=== PATIENT | female | born 1955 | race Two or more races ===

== ENCOUNTER → 2017-02-20 | Outpatient (CLI) | payer OTHER | LOC: RAD 08:42 | PROVIDERS: ATTEND Internal Medicine | DX: C54.1 Malignant neoplasm of endometrium (principal) | CPT/HCPCS: 71260; 74177 ==

== ENCOUNTER → 2017-05-13 | Outpatient (CLI) | payer OTHER ==
--- NOTE | 2017-05-14 08:29 | RADIOLOGY REPORT (SQ) ---
EXAM DESCRIPTION: PET CT SKULL/THIGH COMPLETED DATE/TIME: 05/13/2017 6:59 pm REASON FOR STUDY: ENDOMETRIUM CANCER C54.1 MALIGNANT NEOPLASM OF ENDOMETRIUM COMPARISON: CT dated 02/20/2017. RADIONUCLIDE AND DOSE: 12.0 mCi F18 FDG The route of agent administration: Intravenous FASTING BLOOD SUGAR: 88 mg/dl CONTRAST TYPE AND DOSE: No CT contrast given. TECHNIQUE: Blood glucose level was verified. Above dose of FDG was injected intravenously. 2-D seg mented attenuation correction images were obtained from the base of the skull to the midthighs. Nonc ontrast CT images were obtained for attenuation correction and fusion with emission images. CT image s were performed without oral or intravenous contrast and are not sensitive for parenchymal lesions. A series of overlapping emission PET images were obtained. [facility] by the radiologist. Images stored on PACS. LIMITATIONS: None. FINDINGS: HEAD AND NECK: No areas of abnormal metabolic activity in the soft tissues of the head and neck. CHEST: No areas of abnormal metabolic activity in the chest. ABDOMEN AND PELVIS: No areas of abnormal metabolic activity in the abdomen or pelvis. Expected physi ologic activity is present in the genitourinary system and bowel. PROXIMAL LOWER EXTREMITIES: No areas of abnormal metabolic activity in the soft tissues of the lower extremities. BONES: No abnormal metabolic activity in the visualized skeleton. ADDITIONAL CT FINDINGS: Incidental cyst in the liver. Colonic diverticulosis. Stable 1.8 cm hypoden se mass in the tail of the pancreas with no abnormal activity on PET imaging. OTHER: No other significant findings. IMPRESSION: UNREMARKABLE PET SCAN. INCIDENTAL CT FINDINGS ABOVE. MASS IN THE TAIL OF THE PANCRE DOES NOT DEMONSTRATE INCREASED ACTIVITY ON PET IMAGING. CONTINUED SURVEILLANCE CLINICALLY NOAM CATED. TECHNICAL DOCUMENTATION: JOB ID: [id number] [employer]- All Rights Reserved
== END ==
LOC: RAD 16:20
PROVIDERS: ATTEND Internal Medicine
DX: C54.1 Malignant neoplasm of endometrium (principal)
CPT/HCPCS: 78815; A9552

== ENCOUNTER → 2017-07-26 | Outpatient (CLI) | payer OTHER ==
--- NOTE | 2017-07-26 10:57 | WOMENS IMAGING REPORT ---
EXAM DESCRIPTION: BONE DENSITY HIP/SPINE COMPLETED DATE/TIME: 07/26/2017 8:25 am REASON FOR STUDY: SCREENING MAMMO; OSTEOPOROSIS Z12.31 ENCNTR SCREEN MAMMOGRAM FOR MALIGNANT NEOPLA [facility] COMPARISON: None. TECHNIQUE: Dual-Energy X-ray Absorptiometry (DEXA) of the AP Spine and Hip. LIMITATIONS: None. FINDINGS: LUMBAR SPINE: The bone mineral density (BMD) measured from L1-L4 in the AP projection correlates with a T-score of 1.2, which is normal as defined by the World Health Organization. HIP: The bone mineral density (BMD) measured in the left hip correlates with a T-score of -1.2 in the femo ral neck, which is osteopenia as defined by the World Health Organization. IMPRESSION: 1. LUMBAR SPINE: NORMAL. 2. HIP: OSTEOPENIA. COMMENT: The World Health Organization defines low BMD as follows: T-score: Normal: Greater than -1.0 Osteopenia: Between -1.0 and -2.5 Osteoporosis: Less than -2.5 without fractures Established osteoporosis: Less than -2.5 with fractures In general, you may wish to consider: Diagnosis Treatment Follow-up DEXA Normal BMD Prevention 2-3 years Osteopenia Prevention/Therapy 1-2 years Osteoporosis Therapy Yearly TECHNICAL DOCUMENTATION: JOB ID: [id number] [employer]- All Rights Reserved
--- NOTE | 2017-07-31 18:27 | WOMENS IMAGING REPORT ---
EXAM DESCRIPTION: 3D SCREENING MAMMO BILAT COMPLETED DATE/TIME: 07/26/2017 8:25 am REASON FOR STUDY: SCREENING MAMMO; OSTEOPOROSIS Z12.31 ENCNTR SCREEN MAMMOGRAM FOR MALIGNANT NEOPLA [facility] COMPARISON: 2014, 2012, 2009 TECHNIQUE: Standard craniocaudal and mediolateral oblique views of each breast recorded using digita l acquisition and breast tomosynthesis. LIMITATIONS: None. FINDINGS: No masses, calcifications or architectural distortion. No areas of suspicion. Read with the assistance of CAD. .[facility] - R2 Cenova Version 1.3 .[facility] - R2 Cenova Version 1.3 .[facility] - R2 Cenova Version 2.4 .[facility] - R2 Cenova Version 2.4 .[facility] - R2 Cinder Dump Crane Operator Version 9.2 IMPRESSION: NORMAL MAMMOGRAM. BIRADS 1. BREAST DENSITY: b. There are scattered areas of fibroglandular density. BIRAD: 1 NEGATIVE RECOMMENDATION: ROUTINE SCREENING Please continue yearly bilateral screening tomosynthesis in June 2018 COMMENT: The patient has been notified of the results by letter per [place] requirements. Additional no tification policies are in place for contacting patient with suspicious or incomplete findings. Quality ID #225: The [employer] recommends an annual screening mammogram for women aged 40 years or over. This facility utilizes a reminder system to ensure that all patients receive reminder letters, and/or direct phone calls for appointments. This includes reminders for routine scr eening mammograms, diagnostic mammograms, or other Breast Imaging Interventions when appropriate. Th is patient will be placed in the appropriate reminder system. The [employer] (ACR) has developed recommendations for screening MRI of the breast s in certain patient populations, to be used in conjunction with mammography. Breast MRI surveillanc e may be appropriate for women with more than 20% lifetime risk of developing breast cancer as deter mined by genetic testing, significant family history of the disease, or history of mantle radiation f or Hodgkins Disease. ACR Practice Guidelines 2008. DBT Technology DBT is a type of tomographic mammography. With conventional mammography, overlapping breast tissue ma y make lesions difficult to detect, even with good compression. DBT uses an x-ray tube that rotates a round the breast, taking images at different angles. These images are then combined to create thin sl ices of the breast that the radiologist can view as a 3D reconstruction. The [employer] unit can perform full-field digital mammograms (2D imaging); or DBT (3D imaging); or both, in a combination mode that quickly performs both the mammogram and the tomosynthesis scan while the breast is still compressed. PQRS 6045F: Fluoroscopic imaging is not utilized for breast tomosynthesis. TECHNICAL DOCUMENTATION: FINDING NUMBER: (1) ASSESSMENT: (1) JOB ID: [id number] [employer]- All Rights Reserved
== END ==
LOC: WI 07:51
PROVIDERS: ATTEND Internal Medicine
DX: Z12.31 Encounter for screening mammogram for malignant neoplasm of breast (principal)
CPT/HCPCS: 77063; 77080; G0202; 77067

== ENCOUNTER → 2017-07-30 | Outpatient (CLI) | payer OTHER ==
--- NOTE | 2017-07-30 11:08 | RADIOLOGY REPORT (SQ) ---
EXAM DESCRIPTION: CT CHEST WITH; CT ABD/PELVIS WITH IV ORAL COMPLETED DATE/TIME: 07/30/2017 9:53 am; 07/30/2017 9:54 am REASON FOR STUDY: ENDOMETRIUM CA (C54.1) C54.1 MALIGNANT NEOPLASM OF ENDOMETRIUM COMPARISON: PET-CT 05/13/2017 CT chest abdomen pelvis 02/20/2017 CONTRAST TYPE AND DOSE: contrast/concentration: Isovue 370.00 mg/ml; Total Contrast Delivered: 62.0 ml; Total Saline Delivered: 65.0 ml RENAL FUNCTION: Creatinine 0.6 TECHNIQUE: CT scan of the chest performed using helical scanning technique with dynamic intravenous contrast injection. Images reviewed with lung, soft tissue and bone windows. Reconstructed coronal a nd sagittal MPR images reviewed. All images stored on PACS. CT scan of the abdomen and pelvis performed with intravenous and with oral contrastusing helical scan tom technique with dynamic intravenous contrast injection. Images reviewed with lung, soft tissue a nd bone windows. Reconstructed coronal and sagittal MPR images reviewed. Delayed images for evaluat ion of the urinary system also acquired and evaluated. All images stored on PACS. All CT scanners at this facility use dose modulation, iterative reconstruction, and/or weight based d osing when appropriate to reduce radiation dose to as low as reasonably achievable (ALARA). [facility]: Dose Right [facility]: CareDose [facility]: Dose Right [facility]: Teradose 4D [facility]: Smart Technologies RADIATION DOSE: Up-to-date CT equipment and radiation dose reduction techniques were employed. CTDIv ol: 4.4 - 4.9 mGy. DLP: 625 mGy-cm. . LIMITATIONS: None. FINDINGS: CHEST: LUNGS AND PLEURA: No opacities, worrisome nodules, masses. No pneumothorax. No effusions. Stable no ncalcified less than 3 mm granulomas in the right middle lobe. HILAR AND MEDIASTINAL STRUCTURES: No identified masses or abnormal nodes. HEART AND VASCULAR STRUCTURES: No aneurysm or dissection. No central pulmonary emboli. No pericardi al effusion. HARDWARE: None. THYROID AND OTHER SOFT TISSUES: No masses. No adenopathy. BONES: No significant finding. OTHER: No other significant finding. ABDOMEN AND PELVIS: LIVER: Normal size. No masses. No dilated ducts. Stable 2 cm hepatic cyst left lobe liver axial fifi ge 53. SPLEEN: Normal size. No focal lesions. PANCREAS: Along the pancreatic tail, 1.7 cm complex cyst is present on axial image 15 unchanged from prior exams. This was non metabolic on PET-CT 05/05/2015. No significant calcifications. No adjacent inflammation or peripancreatic fluid collections. Pancreatic duct not dilated. GALLBLADDER: Surgically absent ADRENAL GLANDS: No significant masses or asymmetry. RIGHT KIDNEY AND URETER: 7 mm fatty density angiomyolipoma lower pole right kidney unchanged. No sign ificant calcification. No hydronephrosis or hydroureter. LEFT KIDNEY AND URETER: No solid masses. No significant calcification. No hydronephrosis or hydrouret er. AORTA AND VESSELS: No aneurysm. No dissection. Renal arteries, SMA, celiac without stenosis. RETROPERITONEUM: No retroperitoneal adenopathy, hemorrhage or masses. Multiple surgical post retrope ritoneal lymph node dissection BOWEL AND PERITONEAL CAVITY: No masses or inflammatory changes. No free fluid or peritoneal masses. Patient drank oral contrast. No bowel obstruction. APPENDIX: Surgically absent ABDOMINAL WALL: No masses. No hernias. BONES: Advanced degenerative disc changes at L3-4. Pelvis: No other significant finding. No adenopathy. No free fluid. IMPRESSION: No CT evidence of metastatic endometrial cancer to the chest abdomen or pelvis. Stable hepatic cysts, pancreatic complex cyst. TECHNICAL DOCUMENTATION: JOB ID: [id number] Quality ID # 436: Final reports with documentation of one or more dose reduction techniques (e.g., Au tomated exposure control, adjustment of the mA and/or kV according to patient size, use of iterative reconstruction technique) 2010 [employer]- All Rights Reserved
== END ==
LOC: RAD 09:11
PROVIDERS: ATTEND Internal Medicine
DX: C54.1 Malignant neoplasm of endometrium (principal)
CPT/HCPCS: 71260; 74177; 82565

== ENCOUNTER → 2017-11-12 | Outpatient (CLI) | payer OTHER ==
--- NOTE | 2017-11-12 11:58 | RADIOLOGY REPORT (SQ) ---
EXAM DESCRIPTION: CT CHEST WITH; CT ABD/PELVIS WITH IV ONLY COMPLETED DATE/TIME: 11/12/2017 9:49 am REASON FOR STUDY: ENDOMETRIUM CA C54.1 MALIGNANT NEOPLASM OF ENDOMETRIUM COMPARISON: 07/30/2017. PET-CT from last April. CONTRAST TYPE AND DOSE: contrast/concentration: Isovue 370.00 mg/ml; Total Contrast Delivered: 64.0 ml; Total Saline Delivered: 65.0 ml RENAL FUNCTION: Creatinine 0.5 TECHNIQUE: CT scan of the chest performed using helical scanning technique with dynamic intravenous contrast injection. Images reviewed with lung, soft tissue and bone windows. Reconstructed coronal a nd sagittal MPR images reviewed. All images stored on PACS. CT scan of the abdomen and pelvis performed with intravenous and with oral contrastusing helical scan tom technique with dynamic intravenous contrast injection. Images reviewed with lung, soft tissue a nd bone windows. Reconstructed coronal and sagittal MPR images reviewed. Delayed images for evaluat ion of the urinary system also acquired and evaluated. All images stored on PACS. All CT scanners at this facility use dose modulation, iterative reconstruction, and/or weight based d osing when appropriate to reduce radiation dose to as low as reasonably achievable (ALARA). [facility]: Dose Right [facility]: CareDose [facility]: Dose Right [facility]: Teradose 4D [facility]: [employer] RADIATION DOSE: CT Rad equipment meets quality standard of care and radiation dose reduction techniq ues were employed. CTDIvol: 4.4 - 4.9 mGy. DLP: 654 mGy-cm. . LIMITATIONS: None. FINDINGS: CHEST: LUNGS AND PLEURA: Scattered new subcentimeter pulmonary nodules have developed. The largest measures just at 4 mm maximally, left upper lobe. Additional tiny nodules are noted in the right middle lobe and in the lower lobes. Worrisome for metastatic disease. HILAR AND MEDIASTINAL STRUCTURES: No identified masses or abnormal nodes. HEART AND VASCULAR STRUCTURES: No aneurysm or dissection. No central pulmonary emboli. No pericardi al effusion. HARDWARE: None. THYROID AND OTHER SOFT TISSUES: No masses. No adenopathy. BONES: No significant finding. OTHER: No other significant finding. ABDOMEN AND PELVIS: LIVER: Low density lesions are now seen scattered throughout the liver. These are generally new. Th ere is a stable anterior right lobe cyst which is better defined and has not progressed. Crescentic circumscribed low density presumed implant near the zulema and extending along the caudate lobe. This measures up to 5 cm maximal transverse dimension and looks new. SPLEEN: Normal size. No focal lesions. PANCREAS: No developing mass. Slight region of heterogeneity in the pancreatic tail as before. No si gnificant calcifications. No adjacent inflammation or peripancreatic fluid collections. Pancreatic du ct not dilated. GALLBLADDER: Surgically absent. ADRENAL GLANDS: No significant masses or asymmetry. RIGHT KIDNEY AND URETER: No solid masses. No significant calcification. No hydronephrosis or hydroure ter. LEFT KIDNEY AND URETER: No solid masses. No significant calcification. No hydronephrosis or hydrouret er. AORTA AND VESSELS: Atherosclerotic but no evidence of aneurysm. Grossly patent major arterial struct ures. No venous clot appreciated. RETROPERITONEUM: Small developing upper retroperitoneal subcentimeter nodes are suggested. BOWEL AND PERITONEAL CAVITY: No masses or inflammatory changes. No free fluid or peritoneal masses. APPENDIX: Not visualized. ABDOMINAL WALL: Minimal umbilical region hernia. PELVIS: No mass or fluid. Bladder unremarkable. No bulky adenopathy suggested. BONES: No significant or acute findings. OTHER: No other significant finding. IMPRESSION: 1. Numerous tiny pulmonary nodules have developed, suspicious. 2. Numerous liver lesi ons have developed, also suspicious for metastases. Cystic-appearing implant along the liver is also now present, not seen before. TECHNICAL DOCUMENTATION: JOB ID: [id number] Quality ID # 436: Final reports with documentation of one or more dose reduction techniques (e.g., Au tomated exposure control, adjustment of the mA and/or kV according to patient size, use of iterative reconstruction technique) 2010 [employer]- All Rights Reserved
== END ==
LOC: RAD 09:06
PROVIDERS: ATTEND Internal Medicine
DX: C54.1 Malignant neoplasm of endometrium (principal); R91.8 Other nonspecific abnormal finding of lung field; K76.9 Liver disease, unspecified
CPT/HCPCS: 71260; 74177; 82565

== ENCOUNTER → 2017-11-18 | Outpatient (CLI) | payer OTHER ==
--- NOTE | 2017-11-19 10:35 | RADIOLOGY REPORT (SQ) ---
EXAM DESCRIPTION: PET CT SKULL/THIGH COMPLETED DATE/TIME: 11/18/2017 8:25 pm REASON FOR STUDY: ENDOMETRIUM C54.1 MALIGNANT NEOPLASM OF ENDOMETRIUM COMPARISON: 05/13/2017 RADIONUCLIDE AND DOSE: 10.2 mCi F18 FDG The route of agent administration: Intravenous FASTING BLOOD SUGAR: 97 mg/dl CONTRAST TYPE AND DOSE: No CT contrast given. TECHNIQUE: Blood glucose level was verified. Above dose of FDG was injected intravenously. 2-D seg mented attenuation correction images were obtained from the base of the skull to the midthighs. Nonc ontrast CT images were obtained for attenuation correction and fusion with emission images. CT image s were performed without oral or intravenous contrast and are not sensitive for parenchymal lesions. A series of overlapping emission PET images were obtained. Images [facility] by the radiologist. Images stored on PACS. LIMITATIONS: None. FINDINGS: HEAD AND NECK: Less than 1 cm left supraclavicular node measuring about 3.2 mean SUV. CHEST: No areas of abnormal metabolic activity in the chest. ABDOMEN AND PELVIS: Several hepatic lesions recently described on CT 11/12/2017 are hypermetabolic. T he most hypermetabolic is a segment 6 lesion measuring 5.7 SUV. PROXIMAL LOWER EXTREMITIES: No areas of abnormal metabolic activity in the soft tissues of the lower extremities. BONES: No abnormal metabolic activity in the visualized skeleton. ADDITIONAL CT FINDINGS: See recent CT chest abdomen pelvis. OTHER: No other significant findings. IMPRESSION: 1. Hypermetabolic liver lesions suspicious for metastatic disease. 2. Small hypermetabolic left supraclavicular node. TECHNICAL DOCUMENTATION: JOB ID: [id number] [id number]- All Rights Reserved
== END ==
LOC: RAD 17:36
PROVIDERS: ATTEND Internal Medicine
DX: C54.1 Malignant neoplasm of endometrium (principal)
CPT/HCPCS: 78815; A9552

== ENCOUNTER → 2017-12-06 | Outpatient (CLI) | payer OTHER ==
--- NOTE | 2017-12-06 13:51 | RADIOLOGY REPORT (SQ) ---
EXAM DESCRIPTION: NM MUGA REST COMPLETED DATE/TIME: 12/06/2017 1:05 pm REASON FOR STUDY: ENCTR FOR F/U EXAM AFTER CHEMO (Z08) Z08 ENCNTR FOR FOLLOW-UP EXAM AFTER TRTMT FO R MALIGNANT NEOP COMPARISON: None. RADIONUCLIDE AND DOSE: 25.2 mCi technetium 9 9 tagged red cells. The route of agent administration: Intravenous TECHNIQUE: Following administration of the radionuclide, gated images of the heart are obtained in t hree projections. Left ventricular functional analysis performed. LIMITATIONS: None. FINDINGS: LEFT VENTRICULAR FUNCTION: EJECTION FRACTION: 65%. END-DIASTOLIC VOLUME: 70 mL. END-SYSTOLIC VOLUME: 27 mL. WALL MOTION: No focal wall motion abnormalities. OTHER: No other significant finding. IMPRESSION: NORMAL CARDIAC MUGA STUDY. NORMAL LEFT VENTRICULAR FUNCTION WITH VALUES ABOVE. TECHNICAL DOCUMENTATION: JOB ID: [id number] [employer]- All Rights Reserved
== END ==
LOC: RAD 10:35
PROVIDERS: ATTEND Internal Medicine
DX: Z08 Encounter for follow-up examination after completed treatment for malignant neoplasm (principal)
CPT/HCPCS: 78472; A9560; Q9969

== ENCOUNTER → 2018-03-04 | Outpatient (CLI) | payer OTHER ==
--- NOTE | 2018-03-04 09:45 | RADIOLOGY REPORT (SQ) ---
EXAM DESCRIPTION: CT CHEST WITH COMPLETED DATE/TIME: 03/04/2018 9:07 am REASON FOR STUDY: MAL BRE OF ENDOMETRIUM C54.1 MALIGNANT NEOPLASM OF ENDOMETRIUM COMPARISON: 11/12/2017 TECHNIQUE: CT scan of the chest performed using helical scanning technique with dynamic intravenous contrast injection. Images reviewed with lung, soft tissue and bone windows. Reconstructed coronal and sagittal MPR images reviewed. All images stored on PACS. All CT scanners at this facility use dose modulation, iterative reconstruction, and/or weight based d osing when appropriate to reduce radiation dose to as low as reasonably achievable (ALARA). [facility]: Dose Right [facility]: CareDose [facility]: Dose Right [facility]: Teradose 4D [facility]: [employer] CONTRAST TYPE AND DOSE: 62 cc Isovue 370 RENAL FUNCTION: Creatinine-0.5 BUN= 15 RADIATION DOSE: Total exam DLP: 620.05. LIMITATIONS: None. FINDINGS: LUNGS AND PLEURA: Since the prior examination dated 11/12/2017, interval increase in size and number of the bilateral pulmonary nodules. Some of the largest nodules on the prior examination measured 4 mm maximally in the upper lobe, compared to 9-10 mm on the current examination. Considera tions for these findings include metastatic disease. Interval development of mildly prominent interstitial markings in the lungs, more so in the left lung , may be on the basis of lymphangitic carcinomatosis, edema or infiltrate. No pleural effusion or pn eumothorax. The central airways are clear. HILAR AND MEDIASTINAL STRUCTURES: No significant interval changes. HEART AND VASCULAR STRUCTURES: No aneurysm or dissection. No central pulmonary emboli. No pericardi al effusion. HARDWARE: Left Oophoc-Y-Oxkb catheter. UPPER ABDOMEN: Please see CT abdomen report. THYROID AND OTHER SOFT TISSUES: No masses. No adenopathy. BONES: The osseous structures are stable in appearance. OTHER: No other significant finding. IMPRESSION: 1 Since the prior examination dated 11/12/2017, interval increase in size and number of t he bilateral pulmonary nodules. Considerations for this finding includes metastatic disease. 2 Interval development of mildly prominent interstitial markings in the lungs, more so on the left, m ay be on the basis of lymphangitis carcinomatosis, edema or infiltrate. TECHNICAL DOCUMENTATION: JOB ID: [id number] Quality ID # [id number]: Final reports with documentation of one or more dose reduction techniques (e.g., Au tomated exposure control, adjustment of the mA and/or kV according to patient size, use of iterative reconstruction technique) 2010 [employer]- All Rights Reserved Reading location - IP/workstation name: [email or web address]
--- NOTE | 2018-03-04 09:59 | RADIOLOGY REPORT (SQ) ---
EXAM DESCRIPTION: CT ABD/PELVIS WITH IV ONLY COMPLETED DATE/TIME: 03/04/2018 9:07 am REASON FOR STUDY: MAL BRE OF ENDOMETRIUM C54.1 MALIGNANT NEOPLASM OF ENDOMETRIUM COMPARISON: 11/12/2017 TECHNIQUE: CT scan of the abdomen and pelvis performed using helical scanning technique with dynamic intravenous contrast injection. No oral contrast. Images reviewed with lung, soft tissue, and bone windows. Reconstructed coronal and sagittal MPR images reviewed. Delayed images for evaluation of the urinary system also acquired. All images stored on PACS. All CT scanners at this facility use dose modulation, iterative reconstruction, and/or weight based d osing when appropriate to reduce radiation dose to as low as reasonably achievable (ALARA). [facility]: Dose Right [facility]: CareDose [facility]: Dose Right [facility]: Teradose 4D [facility]: [employer] CONTRAST TYPE AND DOSE: 62.2 cc Isovue 370 RENAL FUNCTION: Creatinine - 0.5 BUN=15 RADIATION DOSE: Total exam DLP: 620.05 LIMITATIONS: None. FINDINGS: LOWER CHEST: Please see CT chest report. Very small left pleural effusion. LIVER: Interval development of multiple, innumerable slightly enhancing hypoattenuated lesions throu ghout the liver since the previous examination. Some of the largest measure approximately 2.3 cm and AP diameter. Considerations for these findings include metastatic disease. No dilated ducts. The hepatic and portal veins are patent. SPLEEN: Normal size. No focal lesions. PANCREAS: Stable slight heterogeneity in the pancreatic tail. No developing masses. No significant calcifications. No adjacent inflammation or peripancreatic fluid collections. Pancreatic duct not dil ated. GALLBLADDER: Prior cholecystectomy. ADRENAL GLANDS: No significant masses or asymmetry. RIGHT KIDNEY AND URETER: No solid masses. No significant calcifications. No hydronephrosis or hyd roureter. LEFT KIDNEY AND URETER: No solid masses. No significant calcifications. No hydronephrosis or hydr oureter. AORTA AND VESSELS: Atherosclerotic changes involving the abdominal aorta. No aneurysm. No dissectio n. Renal arteries, SMA, celiac without stenosis. RETROPERITONEUM: No retroperitoneal adenopathy, hemorrhage or masses. BOWEL AND PERITONEAL CAVITY: Constipation. No masses or inflammatory changes. No free fluid or zuleika toneal masses. APPENDIX: Normal. PELVIS: Stable appearing nonenlarged inguinal lymph nodes. Prior hysterectomy. Vaginal cuff is unr emarkable in appearance. No free fluid. Normal bladder. ABDOMINAL WALL: No masses. No hernias. BONES: The osseous structures are stable in appearance. OTHER: No other significant finding. IMPRESSION: 1 Since the prior examination dated 11/12/2017, interval worsening in the appearance of t he liver. Multiple, innumerable slightly enhancing lesions are noted on the current examination whic h have increased in size and number. Considerations for these findings include metastatic disease. 2. Very small left pleural effusion. TECHNICAL DOCUMENTATION: JOB ID: [id number] Quality ID # 436: Final reports with documentation of one or more dose reduction techniques (e.g., Au tomated exposure control, adjustment of the mA and/or kV according to patient size, use of iterative reconstruction technique) 2010 [employer]- All Rights Reserved Reading location - IP/workstation name: [email or web address]
== END ==
LOC: RAD 08:26
PROVIDERS: ATTEND Physician Assistant Medical
DX: C54.1 Malignant neoplasm of endometrium (principal)
CPT/HCPCS: 71260; 74177

== ENCOUNTER → 2018-05-03 | Outpatient (CLI) | payer OTHER ==
--- NOTE | 2018-05-03 09:47 | RADIOLOGY REPORT (SQ) ---
EXAM DESCRIPTION: CT CHEST WITH; CT ABD/PELVIS WITH IV ONLY COMPLETED DATE/TIME: 05/03/2018 9:23 am REASON FOR STUDY: ENDOMETRIAL CA (C54.1) C54.1 MALIGNANT NEOPLASM OF ENDOMETRIUM COMPARISON: CT CHEST ABDOMEN PELVIS 11/12/2017, 03/04/2018 PET-CT 11/18/2017 CONTRAST TYPE AND DOSE: contrast/concentration: Isovue 370.00 mg/ml; Total Contrast Delivered: 58.0 ml; Total Saline Delivered: 65.0 ml RENAL FUNCTION: Creatinine 0.6 TECHNIQUE: CT scan of the chest performed using helical scanning technique with dynamic intravenous contrast injection. Images reviewed with lung, soft tissue and bone windows. Reconstructed coronal a nd sagittal MPR images reviewed. All images stored on PACS. CT scan of the abdomen and pelvis performed with intravenous and without oral contrastusing helical [place] technique with dynamic intravenous contrast injection. Images reviewed with lung, soft tissu e and bone windows. Reconstructed coronal and sagittal MPR images reviewed. Delayed images for eval uation of the urinary system also acquired and evaluated. All images stored on PACS. All CT scanners at this facility use dose modulation, iterative reconstruction, and/or weight based d osing when appropriate to reduce radiation dose to as low as reasonably achievable (ALARA). [facility]: Dose Right [facility]: CareDose [facility]: Dose Right [facility]: Teradose 4D [facility]: Smart Technologies RADIATION DOSE: CT Rad equipment meets quality standard of care and radiation dose reduction techniq ues were employed. CTDIvol: 4.4 - 4.5 mGy. DLP: 589 mGy-cm. . LIMITATIONS: None. FINDINGS: CHEST: LUNGS AND PLEURA: Increase in thickening of the interlobular septa compared to 03/04/2018 worrisome fo r worsening lymphangitic tumor. Stable multiple subcentimeter pulmonary nodules bilaterally. No pleural effusions. No pneumothorax. HILAR AND MEDIASTINAL STRUCTURES: No identified masses or abnormal nodes. HEART AND VASCULAR STRUCTURES: No aneurysm or dissection. No central pulmonary emboli. No pericardi al effusion. HARDWARE: None. THYROID AND OTHER SOFT TISSUES: No masses. No adenopathy. BONES: No significant finding. OTHER: No other significant finding. ABDOMEN AND PELVIS: LIVER: Increase in size of multiple liver lesions compared to 03/04/2018, index lesions are as follows : Periphery right lobe liver 4.4 x 2.4 cm (was 3 x 2 cm on 03/04/2018). Left lobe liver near the falciform ligament 3.1 x 2.5 cm (was 2 x 2 cm on 03/04/2018). SPLEEN: Normal size. No focal lesions. PANCREAS: No masses. No significant calcifications. No adjacent inflammation or peripancreatic fluid collections. Pancreatic duct not dilated. GALLBLADDER: Surgically absent ADRENAL GLANDS: No significant masses or asymmetry. RIGHT KIDNEY AND URETER: No solid masses. No significant calcification. No hydronephrosis or hydroure ter. LEFT KIDNEY AND URETER: No solid masses. No significant calcification. No hydronephrosis or hydrouret er. AORTA AND VESSELS: No abdominal aortic aneurysm or dissection. RETROPERITONEUM: No retroperitoneal adenopathy, hemorrhage or masses. BOWEL AND PERITONEAL CAVITY: There is trace ascites between the lesser curvature of stomach and left lobe liver. No free intraperitoneal air. No CT evidence of bowel obstruction. Colonic diverticuli without CT signs of acute diverticulitis. APPENDIX: Normal. ABDOMINAL WALL: No masses. No hernias. PELVIS: No mass or free fluid. Normal bladder. Post hysterectomy. BONES: No significant or acute findings. OTHER: No other significant finding. IMPRESSION: Increased interstitial markings in both lungs worrisome for worsening lymphangitic sprea d of tumor. Increase in size of multiple liver lesions TECHNICAL DOCUMENTATION: JOB ID: [id number] Quality ID # [id number]: Final reports with documentation of one or more dose reduction techniques (e.g., Au tomated exposure control, adjustment of the mA and/or kV according to patient size, use of iterative reconstruction technique) 2010 [employer]- All Rights Reserved Reading location - IP/workstation name: [email or web address]
== END ==
LOC: RAD 08:43
PROVIDERS: ATTEND Internal Medicine
DX: C54.1 Malignant neoplasm of endometrium (principal); K76.9 Liver disease, unspecified; K57.30 Diverticulosis of large intestine without perforation or abscess without bleeding
CPT/HCPCS: 71260; 74177

== ENCOUNTER 2018-06-07 17:03 | Inpatient (IN) | payer OTHER ==
[2018-06-07] MEDS ORDERED: NORMAL SALINE 1000 ML 500 ML IV PRN (17:38)
[2018-06-07] MEDS ORDERED: NORMAL SALINE 1000 ML 500 ML IV ONE (17:38)
--- NOTE | 2018-06-07 17:40 | ER Document Report ---
ED Medical Screen (RME) - General Chief Complaint: Syncope Stated Complaint: DIZZY Time Seen by Provider: 06/07/18 17:37 Notes: 62 years old female with a history of metastatic uterine cancer, chemotherapy was given 3 weeks ago. She was seen at the [facility] last Sunday and was given Lasix to be taken daily. Now she is feeling dizzy lightheaded, and falling. Therefore brought to the ED. Been dehydrated. Nauseous and vomited a few times. TRAVEL OUTSIDE OF THE [place] IN LAST 30 DAYS: No - Related Data Allergies/Adverse Reactions: No Known Allergies Allergy (Unverified 06/07/18 17:05) Physical Exam - Vital signs Vitals: Pulse Resp BP Pulse Ox 89 16 84/51 L 93 06/07/18 17:10 06/07/18 17:10 06/07/18 17:10 06/07/18 17:10 Course - Vital Signs Vital signs: Temp Pulse Resp BP Pulse Ox 89 16 84/51 L 93 06/07/18 17:10 06/07/18 17:10 06/07/18 17:10 06/07/18 17:10 Doctor's Discharge - Discharge Referrals: SHAILESH SUTHERLAND MD [Primary Care Provider] - Follow up as needed
--- NOTE | 2018-06-07 18:02 | RADIOLOGY REPORT (SQ) ---
EXAM DESCRIPTION: CHEST 2 VIEWS COMPLETED DATE/TIME: 06/07/2018 5:52 pm REASON FOR STUDY: Shortness of breath/metastatic tumor COMPARISON: 05/03/2018 EXAM PARAMETERS: NUMBER OF VIEWS: two views TECHNIQUE: Digital Frontal and Lateral radiographic views of the chest acquired. RADIATION DOSE: NA LIMITATIONS: none FINDINGS: LUNGS AND PLEURA: Extensive lymphangitic changes with Jamshid B-lines. Left pleural effusi on. Small pulmonary nodules. MEDIASTINUM AND HILAR STRUCTURES: No masses or contour abnormalities. HEART AND VASCULAR STRUCTURES: Heart normal size. No evidence for failure. BONES: No acute findings. HARDWARE: None in the chest. OTHER: No other significant finding. IMPRESSION: Diffuse metastatic disease predominantly new lymphatic. Left pleural effusions slightly larger than the recent CT. TECHNICAL DOCUMENTATION: JOB ID: [id number] [employer]- All Rights Reserved Reading location - IP/workstation name: [email or web address]
--- NOTE | 2018-06-07 18:15 | ER Document Report ---
ED Dizziness/Weakness - General Information source: Patient TRAVEL OUTSIDE OF THE U.[place] IN LAST 30 DAYS: No <TAMIKO BRADY - Last Filed: 06/07/18 18:38> <MAKENZIE RUIZ - Last Filed: 06/07/18 20:39> - General Chief Complaint: Syncope Stated Complaint: DIZZY Time Seen by Provider: 06/07/18 17:37 Notes: Mrs. 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 She reports that she was seen at [facility] and prescribed Lasix 20mg daily for bilateral lower extremity edema and fluid to her lungs. She reports that she took a dose on Sunday and , 06/05 and 06/06, but did not take the Lasix today. Pt reports that she has been dizzy and lightheaded with standing since starting the Lasix and had a near syncopal episode after coming home from [facility]. Pt's BP is very low today, 84/51 while sitting in triage. She reports that her BP usually runs 121/78. Pt denies much shortness of breath before ever starting the Lasix and denies any relief to her breathing since starting the Lasix. Pt's Oncologist is Dr. Pastor. Pt's last chemo treatment was 4 weeks ago. Pt takes pain medication and a medication for her HLD. She denies having her dose of pain medication this evening and reports some discomfort to her RUQ, under her ribs. Pt is also taking Carvedilol for an episode of heart arrhythmia back in 2008. (TAMIKO BRADY) History from the spouse is: The patient was at [facility] on Sunday, Sunday, being seen as an outpatient. She was diagnosed with urinary tract infection and started on Macrodantin on . She was given a prescription for low-dose prednisone 5 mg a day because her energy levels were low. She was given a prescription for Lasix 20 mg a day for 3 days starting on Sunday due to peripheral edema, and fluid in the lungs. The patient has not urinated very much in the past 2 days despite the 2 doses of Lasix that she has taken. The nurse put compression stockings on the patient sometime before I went in to see her. The edema to the right lower extremity is slightly worse than the left. (MAKENZIE RUIZ) - Related Data Allergies/Adverse Reactions: No Known Allergies Allergy (Unverified 06/07/18 17:05) Past Medical History - General Information source: Patient - Social History Smoking Status: Never Smoker Family History: Reviewed & Not Pertinent Patient has suicidal ideation: No Patient has homicidal ideation: No - Past Medical History Cardiac Medical History: Reports: Hx Hypercholesterolemia Renal/ Medical History: Denies: Hx Peritoneal Dialysis Malignancy Medical History: Reports: Other - stage 4 endometrial cancer with metastases to liver and lung involvement Past Surgical History: Reports: Hx Cholecystectomy, Hx Hysterectomy, Hx Orthopedic Surgery - RT knee surgery after petallar fracture <TAMIKO BRADY - Last Filed: 06/07/18 18:38> Review of Systems - Review of Systems Constitutional: No symptoms reported EENT: No symptoms reported Cardiovascular: See HPI, Dizziness, Lightheaded, Other - low BP Respiratory: See HPI. denies: Short of breath Gastrointestinal: No symptoms reported Genitourinary: No symptoms reported Female Genitourinary: No symptoms reported Musculoskeletal: No symptoms reported Skin: No symptoms reported Hematologic/Lymphatic: No symptoms reported Neurological/Psychological: No symptoms reported -: Yes All other systems reviewed and negative <TAMIKO BRADY - Last Filed: 06/07/18 18:38> Physical Exam <TAMIKO BRADY - Last Filed: 06/07/18 18:38> <MAKENZIE RUIZ - Last Filed: 06/07/18 20:39> - Vital signs Vitals: Pulse Resp BP Pulse Ox 89 16 84/51 L 93 06/07/18 17:10 06/07/18 17:10 06/07/18 17:10 06/07/18 17:10 - Notes Notes: Physical Exam: General: Alert, appears well. HEENT: Normocephalic. Atraumatic. PERRL. Extraocular movements intact. Oropharynx clear. Neck: Supple. Non-tender. No bulging to veins. Respiratory: No respiratory distress. Clear and equal breath sounds bilaterally. Cardiovascular: Regular rate and rhythm. Abdominal: Some RUQ tenderness to palpation. No distension. Normal Bowel Sounds. Back: Non-tender. No deformity or step off. Extremities: Moves all four extremities. Upper extremities: Normal inspection. Normal ROM. Lower extremities: Normal inspection. 1+ edema to bilateral lower extremities, pt is wearing compression stockings. Normal ROM. Neurological: Normal cognition. AAOx3. Normal speech. Psychological: Normal affect. Normal Mood. Skin: Warm. Dry. Normal color. (JOSE ANTONIO,TAMIKO) Course - Laboratory Result Diagrams: 06/07/18 18:22 06/07/18 18:22 - Diagnostic Test Radiology reviewed: Image reviewed, Reports reviewed - Extensive lymphangitic changes with curly B-lines, and left pleural effusion slightly larger than CT scan done 1 month ago.. - EKG Interpretation by Me EKG shows normal: Sinus rhythm, [place], Intervals, QRS Complexes, ST-T Waves Rate: Normal - 82 Rhythm: NSR When compared to previous EKG there are: Previous EKG unavailable - Consults Dr. Paulson Time consulted: 20:20 Consulted provider: will come to ER <MAKENZIE RUIZ - Last Filed: 06/07/18 20:39> - Vital Signs Vital signs: Temp Pulse Resp BP Pulse Ox 89 26 H 96/57 L 97 06/07/18 17:10 06/07/18 19:54 06/07/18 19:54 06/07/18 19:54 - Laboratory Laboratory results interpreted by me: 06/07/18 06/07/18 06/07/18 18:22 18:22 18:22 WBC 26.9 H RBC 2.83 L Hgb 8.9 L Hct 27.8 L MCV 98 H RDW 21.1 H Plt Count 70 L Seg Neuts % (Manual) 94 H Band Neutrophils % 2 L Lymphocytes % (Manual) 0 L Metamyelocytes % 1 H Abs Neuts (Manual) 26.1 H Abs Lymphs (Manual) 0.0 L Sodium 131.3 L Potassium 6.0 H* Chloride 94 L BUN 60 H Creatinine 1.54 H Est GFR ( Amer) 41 L Est GFR (Non-Af Amer) 34 L Glucose 139 H Direct Bilirubin 0.6 H AST 180 H ALT 75 H Alkaline Phosphatase 1133 H NT-Pro-B Natriuret Pep 1320 H Total Protein 5.6 L Albumin 2.6 L Urine Protein Urine Ketones Urine Blood Urine Urobilinogen Ur Leukocyte Esterase 06/07/18 19:34 WBC RBC Hgb Hct MCV RDW Plt Count Seg Neuts % (Manual) Band Neutrophils % Lymphocytes % (Manual) Metamyelocytes % Abs Neuts (Manual) Abs Lymphs (Manual) Sodium Potassium Chloride BUN Creatinine Est GFR ( Amer) Est GFR (Non-Af Amer) Glucose Direct Bilirubin AST ALT Alkaline Phosphatase NT-Pro-B Natriuret Pep Total Protein Albumin Urine Protein 100 H Urine Ketones TRACE H Urine Blood MODERATE H Urine Urobilinogen 4.0 H Ur Leukocyte Esterase LARGE H Critical Care Note - Critical Care Note Total time excluding time spent on procedures (mins): 40 <MAKENZIE RUIZ - Last Filed: 06/07/18 20:39> Discharge <TAMIKO BRADY - Last Filed: 06/07/18 18:38> - Discharge Admitting Provider: Hospitalist Unit Admitted: IMCU <MAKENZIE RUIZ - Last Filed: 06/07/18 20:39> - Discharge Clinical Impression: Dehydration, Stage IV adenocarcinoma of endometrium Hypotension Qualifiers: Hypotension type: hypotension due to hypovolemia Qualified Code(s): I95.89 - Other hypotension Urinary tract infection Qualifiers: Urinary tract infection type: site unspecified Hematuria presence: with hematuria Qualified Code(s): N39.0 - Urinary tract infection, site not specified Condition: Good Disposition: ADMITTED INPATIENT Scribe Attestation: 06/07/18 19:00 I personally performed the services described in the documentation, reviewed and edited the documentation which was dictated to the scribe in my presence, and it accurately records my words and actions. (MAKENZIE RUIZ) Scribe Documentation - Scribe Written by Valencia:: Valencia Bear 06/07/18 500 acting as scribe for :: Perico <TAMIKO BRADY - Last Filed: 06/07/18 18:38>
[2018-06-07] MEDS ORDERED: TRAMADOL HCL 50 MG TABLET PO ONE (18:23)
[2018-06-07 18:52] LABS: HEMATOCRIT 27.8 % (36.0-47.0); HEMOGLOBIN 8.9 g/dL (12.0-15.5); MEAN CORPUSCULAR HEMOGLOBIN 31.4 pg (27.0-33.4); MEAN CORPUSCULAR VOLUME 98 fl (80-97); RED BLOOD COUNT 2.83 10^6/uL (3.72-5.28); RED CELL DISTRIBUTION WIDTH 21.1 % (11.5-14.0); WHITE BLOOD COUNT 26.9 10^3/uL (4.0-10.5)
[2018-06-07 18:54] LABS: PLATELET COUNT 70 10^3/uL (150-450)
[2018-06-07 19:01] LABS: ALANINE AMINOTRANSFERASE 75 U/L (9-52); ALBUMIN 2.6 g/dL (3.5-5.0); ALKALINE PHOSPHATASE 1133 U/L (38-126); ANION GAP 14 (5-19); ASPARTATE AMINO TRANSFERASE 180 U/L (14-36); BILIRUBIN,DIRECT 0.6 mg/dL (0.0-0.4); BILIRUBIN,TOTAL 0.8 mg/dL (0.2-1.3); BLOOD UREA NITROGEN 60 mg/dL (7-20); CALCIUM 8.7 mg/dL (8.4-10.2); CARBON DIOXIDE 23 mmol/L (22-30); CHLORIDE 94 mmol/L (98-107); GLUCOSE 139 mg/dL (75-110); SODIUM 131.3 mmol/L (137-145); TOTAL PROTEIN 5.6 g/dL (6.3-8.2)
[2018-06-07 19:12] LABS: ABSOLUTE MONOCYTES # (MANUAL) 0.8 10^3/uL (0.1-1.4); ABSOLUTE NEUTROPHILS# (MANUAL) 26.1 10^3/uL (1.7-8.2); BAND NEUTROPHILS % (MANUAL) 2 % (3-5); BASOPHILS % (MANUAL) 0 % (0-2); EOSINOPHILS % (MANUAL) 0 % (0-6); LYMPHOCYTES % (MANUAL) 0 % (13-45); METAMYELOCYTES % (MANUAL) 1 % (0); MONOCYTES % (MANUAL) 3 % (3-13); NUCLEATED RED BLOOD CELLS 1 /100 WBC (0); SEGMENTED NEUTROPHILS % (MAN) 94 % (42-78); TOTAL CELLS COUNTED 100
[2018-06-07 19:27] LABS: ANISOCYTOSIS 3+; HYPOCHROMASIA SLIGHT; POIKILOCYTOSIS SLIGHT; POLYCHROMASIA SLIGHT; TEAR DROP CELLS SLIGHT; TOXIC GRANULATION SLIGHT
[2018-06-07 19:28] LABS: PLATELET COMMENT DECREASED
[2018-06-07 19:44] LABS: LIPASE 197.7 U/L (23-300)
[2018-06-07 20:00] LABS: APPEARANCE,URINE CLOUDY; BILIRUBIN,URINE NEGATIVE (NEGATIVE); GLUCOSE, URINE NEGATIVE (NEGATIVE); KETONES,URINE TRACE mg/dL (NEGATIVE); LEUKOCYTE ESTERASE,URINE LARGE (NEGATIVE); NITRITE,URINE NEGATIVE (NEGATIVE); PROTEIN,URINE 100 mg/dL (NEGATIVE); URINE SPECIFIC GRAVITY 1.039
[2018-06-07 20:02] LABS: COLOR,URINE YELLOW
[2018-06-07] MEDS ORDERED: CEFTRIAXONE 1 GM/D5W RTU 50 ML IV ONE (20:06)
[2018-06-07] MEDS ORDERED: IPRATROPIUM/ALBUTEROL 0.5-2.5 MG/3 ML AMPUL NEB PRN (20:21)
[2018-06-07] MEDS ORDERED: MAG HYDROX/AL HYDROX/SIMETH SUSP 30 ML UDCUP PO PRN (20:21)
[2018-06-07] MEDS ORDERED: MAGNESIUM HYDROXIDE SUSP 30 ML UDCUP PO PRN (20:21)
[2018-06-07] MEDS ORDERED: LACTULOSE SYRUP 20 GM/30 ML UDCUP PO ONE (20:21)
[2018-06-07] MEDS ORDERED: NORMAL SALINE 1000 ML 1,000 ML IV SCH (20:30)
[2018-06-07] MEDS: CEFTRIAXONE SODIUM 1,000 MG in NORMAL SALINE 50 ML IV SCH (20:49)
[2018-06-07] MEDS: NORMAL SALINE 1000 ML 1,000 ML IV PRN (21:16)
[2018-06-07] MEDS: HEPARIN SOD (PORCINE) 5,000 UNIT/ML 1 ML SYRINGE SUBCUT SCH (23:16)
[2018-06-08] MEDS: ACETAMINOPHEN 325 MG TABLET PO PRN (00:39)
[2018-06-08] MEDS ORDERED: ONDANSETRON HCL INJ/PF 4 MG/2 ML SDV IV ONE (02:15)
[2018-06-08] MEDS: NORMAL SALINE 1000 ML 1,000 ML IV PRN ×3 (02:58→17:27)
[2018-06-08] MEDS: HEPARIN SOD (PORCINE) 5,000 UNIT/ML 1 ML SYRINGE SUBCUT SCH (05:57)
[2018-06-08 06:55] LABS: HEMATOCRIT 24.5 % (36.0-47.0); MEAN CORPUSCULAR HEMOGLOBIN 31.9 pg (27.0-33.4); MEAN CORPUSCULAR HGB CONC 32.6 g/dL (32.0-36.0); MEAN CORPUSCULAR VOLUME 98 fl (80-97); RED BLOOD COUNT 2.51 10^6/uL (3.72-5.28); RED CELL DISTRIBUTION WIDTH 21.5 % (11.5-14.0); WHITE BLOOD COUNT 24.7 10^3/uL (4.0-10.5)
--- NOTE | 2018-06-08 07:12 | EKG REPORT ---
SEVERITY:- NORMAL ECG - SINUS RHYTHM : Confirmed by: Jose Hearn MD 08-Jun-2018 07:11:25
[2018-06-08 07:21] LABS: ANION GAP 16 (5-19); BLOOD UREA NITROGEN 58 mg/dL (7-20); CALCIUM 7.9 mg/dL (8.4-10.2); CARBON DIOXIDE 18 mmol/L (22-30); CHLORIDE 100 mmol/L (98-107); GLUCOSE 112 mg/dL (75-110); POTASSIUM 5.1 mmol/L (3.6-5.0); SODIUM 133.9 mmol/L (137-145)
[2018-06-08 07:50] LABS: PLATELET COUNT 51 10^3/uL (150-450)
[2018-06-08 07:52] LABS: ABSOLUTE LYMPHOCYTES# (MANUAL) 0.5 10^3/uL (0.5-4.7); ABSOLUTE MONOCYTES # (MANUAL) 0.2 10^3/uL (0.1-1.4); BAND NEUTROPHILS % (MANUAL) 1 % (3-5); BASOPHILS % (MANUAL) 0 % (0-2); EOSINOPHILS % (MANUAL) 0 % (0-6); LYMPHOCYTES % (MANUAL) 2 % (13-45); MONOCYTES % (MANUAL) 1 % (3-13); SEGMENTED NEUTROPHILS % (MAN) 96 % (42-78); TOTAL CELLS COUNTED 100
[2018-06-08 07:56] LABS: ANISOCYTOSIS 3+; POLYCHROMASIA SLIGHT
[2018-06-08 07:57] LABS: OVALOCYTES 1+; PLATELET COMMENT DECREASED; POIKILOCYTOSIS 1+
[2018-06-08] MEDS: DOCUSATE SODIUM 100 MG CAPSULE PO SCH ×2 (09:10→17:17)
[2018-06-08] MEDS ORDERED: LORAZEPAM INJ 2 MG/1 ML VIAL IV PRN (09:21)
[2018-06-08] MEDS ORDERED: ONDANSETRON HCL INJ/PF 4 MG/2 ML SDV IV PRN (09:22)
--- NOTE | 2018-06-08 09:55 | PDOC CONSULTATION ---
Consultation Consult Date: 06/08/18 Attending physician:: MATEO HARDING Consult reason:: Known history of stage IV endometrial cancer here with weakness , dehydration, renal failure History of Present Illness Admission Date/PCP: 06/07/18 20:30 SHAILESH SUTHERLAND MD Patient complains of: Weakness, dehydration, poor p.o. intake History of Present Illness: TRISHA THRASHER is a 62 year old female with known history of stage IV endometrial cancer, was started about 8 months ago with systemic chemotherapy because of recurrence. She has been to through 2 lines of chemotherapy and we are planning on referral to [facility]. She was seen at [facility], and was being considered for clinical trial but unfortunately she progressed and her liver metastasis caused transaminase level elevation as well as thrombocytopenia that excluded her from clinical trial. I was called last week by them and she was starting to look more and more dehydrated. Ultimately, was called by her yesterday, she could not get out of bed, and was very weak and nauseous. Upon admission she was hypotensive, tachycardic, transaminases were 5 -6 times normal, creatinine was elevated and she was admitted for dehydration as well as consideration of sepsis, she did have UA concerning for UTI. She is on Rocephin now. Past Medical History Cardiac Medical History: Reports: Hyperlipidema Malignancy Medical History: Reports: Other - stage 4 endometrial cancer with metastases to liver and lung involvement Past Surgical History Past Surgical History: Reports: Cholecystectomy, Hysterectomy, Orthopedic Surgery - RT knee surgery after petallar fracture Social History Information Source: Patient Smoking Status: Never Smoker Frequency of Alcohol Use: None Hx Recreational Drug Use: No Drugs: None Hx Prescription Drug Abuse: No - Advance Directive Resuscitation Status: Do Not Resuscitate Family History Family History: Reviewed & Not Pertinent Parental Family History Reviewed: Yes Children Family History Reviewed: Yes Sibling(s) Family History Reviewed.: Yes Medication/Allergy Home Medications: Carvedilol [Coreg 12.5 mg Tablet] 12.5 mg PO Q12 06/07/18 Ergocalciferol (Vitamin D2) [Drisdol 50,000 unit (1.25MG) Capsule] 50,000 unit PO CHRISTOPHER@1000 06/07/18 Furosemide [Lasix 20 mg Tablet] 20 mg PO DAILY 06/07/18 Lorazepam [Ativan 0.5 mg Tablet] 0.5 mg PO Q8HP PRN 06/07/18 Ondansetron HCl [Zofran 8 mg Tablet] 8 mg PO Q8HP PRN 06/07/18 Prednisone [Deltasone 5 mg Tablet] 5 mg PO DAILY 06/07/18 Sennosides [Senna Laxative] 8.6 mg PO BID 06/07/18 Simvastatin [Zocor 40 mg Tablet] 40 mg PO QHS 06/07/18 Sitagliptin Phos/Metformin HCl [Janumet 50-500 mg Tablet] 1 tab PO BID 06/07/18 Tramadol HCl [Ultram 50 mg Tablet] 50 mg PO Q6HP PRN 06/07/18 Allergies/Adverse Reactions: No Known Allergies Allergy (Unverified 06/07/18 17:05) Review of Systems Constitutional: PRESENT: anorexia, fatigue, weakness, weight loss Cardiovascular: PRESENT: dyspnea on exertion Gastrointestinal: PRESENT: melena Integumentary: PRESENT: diaphoresis Endocrine: PRESENT: cold intolerance Physical Exam Vital Signs: Temp Pulse Resp BP Pulse Ox 97.4 F 85 14 95/59 L 94 06/08/18 07:23 06/08/18 08:00 06/08/18 08:00 06/08/18 07:23 06/08/18 08:00 Intake & Output 06/07/18 06/08/18 06/09/18 06:59 06:59 06:59 Intake Total 1503 Output Total 0 Balance 1503 Weight 57.1 kg General appearance: PRESENT: no acute distress, well-developed, well-nourished Head exam: PRESENT: atraumatic, normocephalic Eye exam: PRESENT: conjunctiva pink, EOMI, PERRLA. ABSENT: scleral icterus Ear exam: PRESENT: normal external ear exam Mouth exam: PRESENT: moist, tongue midline Neck exam: ABSENT: carotid bruit, JVD, lymphadenopathy, thyromegaly Respiratory exam: PRESENT: clear to auscultation ezio. ABSENT: rales, rhonchi, wheezes Cardiovascular exam: PRESENT: RRR. ABSENT: diastolic murmur, rubs, systolic murmur Pulses: PRESENT: normal dorsalis pedis pul Vascular exam: PRESENT: normal capillary refill GI/Abdominal exam: PRESENT: normal bowel sounds, soft. ABSENT: distended, guarding, mass, organolmegaly, rebound, tenderness Rectal exam: PRESENT: deferred Extremities exam: PRESENT: full ROM. ABSENT: calf tenderness, clubbing, pedal edema Neurological exam: PRESENT: alert, awake, oriented to person, oriented to place , oriented to time, oriented to situation, CN II-XII grossly intact. ABSENT: motor sensory deficit Psychiatric exam: PRESENT: appropriate affect, normal mood. ABSENT: homicidal ideation, suicidal ideation Skin exam: PRESENT: dry, intact, warm. ABSENT: cyanosis, rash Results Laboratory Results: 06/08/18 06:29 06/08/18 06:29 06/07/18 06/08/18 06/08/18 22:45 06:29 06:29 WBC 24.7 H RBC 2.51 L Hgb 8.0 L Hct 24.5 L MCV 98 H MCH 31.9 MCHC 32.6 RDW 21.5 H Plt Count 51 L Seg Neutrophils % Not Reportable Lymphocytes % Not Reportable Monocytes % Not Reportable Eosinophils % Not Reportable Basophils % Not Reportable Absolute Neutrophils Not Reportable Absolute Lymphocytes Not Reportable Absolute Monocytes Not Reportable Absolute Eosinophils Not Reportable Absolute Basophils Not Reportable Sodium 133.9 L Potassium 5.1 H Chloride 100 Carbon Dioxide 18 L Anion Gap 16 BUN 58 H Creatinine 1.43 H Est GFR ( Amer) 45 L Est GFR (Non-Af Amer) 37 L Glucose 112 H Calcium 7.9 L Stool Occult Blood POSITIVE Impressions: Chest X-Ray 06/07/18 17:37 IMPRESSION: Diffuse metastatic disease predominantly new lymphatic. Left pleural effusions slightly larger than the recent CT. Assessment & Plan - Diagnosis (1) Dehydration Is this a current diagnosis for this admission?: Yes Plan: Severe dehydration secondary to progression of disease, continue with IV fluids (2) Stage IV adenocarcinoma of endometrium Is this a current diagnosis for this admission?: Yes Plan: Today had a long discussion with patient about comfort care measures, we will plan for discussion with community hospice, Jcaquie will come and speak to them. We will plan for hydration for the next 24-48 hours, and make arrangements for home hospice. At this point will plan for comfort care measures here, I have added morphine and Ativan, placed DNR on the chart. - Time Time Spent: Greater than 70 Minutes - Inpatient Certification Based on my medical assessment, after consideration of the patient's comorbidities, presenting symptoms, or acuity I expect that the services needed warrant INPATIENT care.: Yes I certify that my determination is in accordance with my understanding of Medicare's requirements for reasonable and necessary INPATIENT services [42 CFR 412.3e].: Yes Medical Necessity: Need For IV Fluids
[2018-06-08] MEDS ORDERED: CEFTRIAXONE 1 GM/D5W RTU 1 GM/50 ML RTUPB IV SCH (10:00)
[2018-06-08] MEDS: MORPHINE SULFATE 10 MG/ML INJ IV PRN ×3 (10:50→22:45)
--- NOTE | 2018-06-08 15:35 | PDOC PROGRESS REPORT ---
Subjective Progress Note for:: 06/08/18 Subjective:: Patient was admitted last night for presyncope. Assumed care. Patient has progressive stage 4 endometrial cancer with mets to the liver and lungs. She was recent started on lasix and developed dizziness and KAN from the diuretic. Patient just had a conversation with oncologist early this morning and she has been transitioned to comfort care. She is already a DNR/DNI. On encounter, she says her dizziness is much better. Continues to have poor oral intake. Denies SOB or chest pain. Reason For Visit: UTI SEPSIS ARF Physical Exam Vital Signs: Temp Pulse Resp BP Pulse Ox 97.4 F 83 20 103/60 91 L 06/08/18 11:22 06/08/18 11:22 06/08/18 11:22 06/08/18 11:22 06/08/18 11:22 Intake & Output 06/07/18 06/08/18 06/09/18 06:59 06:59 06:59 Intake Total 1503 1100 Output Total 0 Balance 1503 1100 Weight 125 lb 14.143 oz General appearance: PRESENT: thin Head exam: PRESENT: atraumatic, normocephalic Eye exam: PRESENT: conjunctiva pink, EOMI, PERRLA. ABSENT: scleral icterus Mouth exam: PRESENT: moist, tongue midline Neck exam: ABSENT: carotid bruit, JVD, lymphadenopathy, thyromegaly Respiratory exam: PRESENT: rhonchi Cardiovascular exam: PRESENT: RRR. ABSENT: diastolic murmur, rubs, systolic murmur GI/Abdominal exam: PRESENT: normal bowel sounds, soft. ABSENT: distended, guarding, mass, organolmegaly, rebound, tenderness Rectal exam: PRESENT: deferred Neurological exam: PRESENT: alert, awake, oriented to person, oriented to place , oriented to time, oriented to situation, CN II-XII grossly intact. ABSENT: motor sensory deficit Results Laboratory Results: 06/08/18 06:29 06/08/18 06:29 06/07/18 06/08/18 06/08/18 22:45 06:29 06:29 WBC 24.7 H RBC 2.51 L Hgb 8.0 L Hct 24.5 L MCV 98 H MCH 31.9 MCHC 32.6 RDW 21.5 H Plt Count 51 L Seg Neutrophils % Not Reportable Lymphocytes % Not Reportable Monocytes % Not Reportable Eosinophils % Not Reportable Basophils % Not Reportable Absolute Neutrophils Not Reportable Absolute Lymphocytes Not Reportable Absolute Monocytes Not Reportable Absolute Eosinophils Not Reportable Absolute Basophils Not Reportable Sodium 133.9 L Potassium 5.1 H Chloride 100 Carbon Dioxide 18 L Anion Gap 16 BUN 58 H Creatinine 1.43 H Est GFR ( Amer) 45 L Est GFR (Non-Af Amer) 37 L Glucose 112 H Calcium 7.9 L Stool Occult Blood POSITIVE Impressions: Chest X-Ray 06/07/18 17:37 IMPRESSION: Diffuse metastatic disease predominantly new lymphatic. Left pleural effusions slightly larger than the recent CT. Assessment & Plan - Diagnosis (1) Acute kidney injury Is this a current diagnosis for this admission?: Yes Plan: Likely pre renal from poor oral intake and diuretics. Will continue hydration with IV fluids for now. (2) Stage IV adenocarcinoma of endometrium Is this a current diagnosis for this admission?: Yes Plan: Oncology following. Patient had checmo few weeks ago. She is now transitioned to comfort care. Will arrange for home hospice. Continue morphine and ativan prn (3) Urinary tract infection Qualifiers: Urinary tract infection type: site unspecified Hematuria presence: with hematuria Qualified Code(s): N39.0 - Urinary tract infection, site not specified; R31.9 - Hematuria, unspecified; R31.9 - Hematuria, unspecified Is this a current diagnosis for this admission?: Yes Plan: Continue Rocephin. - Time Time Spent with patient: 15-24 minutes
[2018-06-08] MEDS: CEFTRIAXONE SODIUM 1,000 MG in NORMAL SALINE 50 ML IV SCH (21:37)
[2018-06-09] MEDS: NORMAL SALINE 1000 ML 1,000 ML IV PRN ×2 (00:18→07:05)
[2018-06-09] MEDS: MORPHINE SULFATE 10 MG/ML INJ IV PRN ×5 (04:00→19:06)
[2018-06-09 06:18] LABS: HEMATOCRIT 26.3 % (36.0-47.0); HEMOGLOBIN 8.4 g/dL (12.0-15.5); MEAN CORPUSCULAR HEMOGLOBIN 31.7 pg (27.0-33.4); MEAN CORPUSCULAR HGB CONC 31.9 g/dL (32.0-36.0); MEAN CORPUSCULAR VOLUME 99 fl (80-97); RED BLOOD COUNT 2.65 10^6/uL (3.72-5.28); RED CELL DISTRIBUTION WIDTH 22.4 % (11.5-14.0); WHITE BLOOD COUNT 28.4 10^3/uL (4.0-10.5)
[2018-06-09 06:23] LABS: PLATELET COUNT 52 10^3/uL (150-450)
[2018-06-09 06:37] LABS: ANION GAP 15 (5-19); BLOOD UREA NITROGEN 50 mg/dL (7-20); CALCIUM 7.6 mg/dL (8.4-10.2); CARBON DIOXIDE 15 mmol/L (22-30); CHLORIDE 106 mmol/L (98-107); GLUCOSE 113 mg/dL (75-110); POTASSIUM 4.8 mmol/L (3.6-5.0); SODIUM 135.7 mmol/L (137-145)
[2018-06-09 06:48] LABS: ABSOLUTE LYMPHOCYTES# (MANUAL) 0.9 10^3/uL (0.5-4.7); ABSOLUTE NEUTROPHILS# (MANUAL) 27.5 10^3/uL (1.7-8.2); BASOPHILS % (MANUAL) 0 % (0-2); EOSINOPHILS % (MANUAL) 0 % (0-6); LYMPHOCYTES % (MANUAL) 3 % (13-45); MONOCYTES % (MANUAL) 0 % (3-13); SEGMENTED NEUTROPHILS % (MAN) 97 % (42-78); TOTAL CELLS COUNTED 100
[2018-06-09 06:49] LABS: ANISOCYTOSIS 2+; PLATELET COMMENT DECREASED; POLYCHROMASIA 1+
[2018-06-09 08:12] VITALS: BP 121/81
[2018-06-09] MEDS ORDERED: GABAPENTIN 100 MG CAPSULE PO PRN (09:11)
[2018-06-09] MEDS: DOCUSATE SODIUM 100 MG CAPSULE PO SCH ×2 (09:55→17:23)
--- NOTE | 2018-06-09 12:36 | PDOC PROGRESS REPORT ---
Subjective Progress Note for:: 06/09/18 Subjective:: Patient feels that morphine is helping her pain, her daughter is at bedside today and we had a long discussion about next steps of care. Spent about 40 minutes in discussion today. Hospice has met with her yesterday and it is possible for discharge in the next 24-48 hours based upon getting all the home need set up. Reason For Visit: UTI SEPSIS ARF Physical Exam Vital Signs: Temp Pulse Resp BP Pulse Ox 97.6 F 106 H 16 121/81 98 06/09/18 07:21 06/09/18 07:21 06/09/18 07:21 06/09/18 07:21 06/09/18 11:00 Intake & Output 06/08/18 06/09/18 06/10/18 06:59 06:59 06:59 Intake Total 1503 4390 657 Output Total 0 0 Balance 1503 4390 657 Weight 57.1 kg 57.1 kg General appearance: PRESENT: no acute distress, well-developed, well-nourished Head exam: PRESENT: atraumatic, normocephalic Eye exam: PRESENT: conjunctiva pink, EOMI, PERRLA. ABSENT: scleral icterus Ear exam: PRESENT: normal external ear exam Mouth exam: PRESENT: moist, tongue midline Neck exam: ABSENT: carotid bruit, JVD, lymphadenopathy, thyromegaly Respiratory exam: PRESENT: clear to auscultation ezio. ABSENT: rales, rhonchi, wheezes Cardiovascular exam: PRESENT: RRR. ABSENT: diastolic murmur, rubs, systolic murmur Pulses: PRESENT: normal dorsalis pedis pul Vascular exam: PRESENT: normal capillary refill GI/Abdominal exam: PRESENT: normal bowel sounds, soft. ABSENT: distended, guarding, mass, organolmegaly, rebound, tenderness Rectal exam: PRESENT: deferred Extremities exam: PRESENT: full ROM. ABSENT: calf tenderness, clubbing, pedal edema Neurological exam: PRESENT: alert, awake, oriented to person, oriented to place , oriented to time, oriented to situation, CN II-XII grossly intact. ABSENT: motor sensory deficit Psychiatric exam: PRESENT: appropriate affect, normal mood. ABSENT: homicidal ideation, suicidal ideation Skin exam: PRESENT: dry, intact, warm. ABSENT: cyanosis, rash Results Laboratory Results: 06/09/18 05:52 06/09/18 05:52 06/09/18 06/09/18 05:52 05:52 WBC 28.4 H RBC 2.65 L Hgb 8.4 L Hct 26.3 L MCV 99 H MCH 31.7 MCHC 31.9 L RDW 22.4 H Plt Count 52 L Seg Neutrophils % Not Reportable Lymphocytes % Not Reportable Monocytes % Not Reportable Eosinophils % Not Reportable Basophils % Not Reportable Absolute Neutrophils Not Reportable Absolute Lymphocytes Not Reportable Absolute Monocytes Not Reportable Absolute Eosinophils Not Reportable Absolute Basophils Not Reportable Sodium 135.7 L Potassium 4.8 Chloride 106 Carbon Dioxide 15 L Anion Gap 15 BUN 50 H Creatinine 0.86 Est GFR ( Amer) > 60 Est GFR (Non-Af Amer) > 60 Glucose 113 H Calcium 7.6 L Impressions: Chest X-Ray 06/07/18 17:37 IMPRESSION: Diffuse metastatic disease predominantly new lymphatic. Left pleural effusions slightly larger than the recent CT. Assessment & Plan - Diagnosis (1) Dehydration Is this a current diagnosis for this admission?: Yes Plan: Continue hydration for today (2) Stage IV adenocarcinoma of endometrium Is this a current diagnosis for this admission?: Yes Plan: Auspice discussed, patient agrees to comfort care measures. Hospice planned as an outpatient once things are set up. - Time Time Spent with patient: 35 or more minutes - Inpatient Certification Based on my medical assessment, after consideration of the patient's comorbidities, presenting symptoms, or acuity I expect that the services needed warrant INPATIENT care.: Yes I certify that my determination is in accordance with my understanding of Medicare's requirements for reasonable and necessary INPATIENT services [42 CFR 412.3e].: Yes Medical Necessity: Need For IV Fluids, Need for Pain Control
[2018-06-09] MEDS ORDERED: NORMAL SALINE 1000 ML 1,000 ML IV PRN (13:31)
--- NOTE | 2018-06-09 13:33 | PDOC PROGRESS REPORT ---
Subjective Progress Note for:: 06/09/18 Subjective:: Patient has progressive stage 4 endometrial cancer with mets to the liver and lungs. She was recently started on lasix and developed dizziness and KAN from the diuretic. She is already a DNR/DNI. She has been transitioned to comfort care as well. Denies dizziness this morning. She complains of tingling discomfort of the feet. Continues to have poor oral intake. Denies SOB or chest pain. Awaiting for home hospice to be finalized and set up at home likely tomorrow AM. Reason For Visit: UTI SEPSIS ARF Physical Exam Vital Signs: Temp Pulse Resp BP Pulse Ox 97.6 F 106 H 16 121/81 98 06/09/18 07:21 06/09/18 07:21 06/09/18 07:21 06/09/18 07:21 06/09/18 11:00 Intake & Output 06/08/18 06/09/18 06/10/18 06:59 06:59 06:59 Intake Total 1503 4390 657 Output Total 0 0 Balance 1503 4390 657 Weight 125 lb 14.143 oz 125 lb 14.143 oz General appearance: PRESENT: thin Head exam: PRESENT: atraumatic, normocephalic Eye exam: PRESENT: conjunctiva pink, EOMI, PERRLA. ABSENT: scleral icterus Neck exam: ABSENT: carotid bruit, JVD, lymphadenopathy, thyromegaly Respiratory exam: PRESENT: clear to auscultation ezio, rhonchi. ABSENT: rales, wheezes Cardiovascular exam: PRESENT: RRR Vascular exam: PRESENT: other - Purplish discoloration of the toes GI/Abdominal exam: PRESENT: normal bowel sounds, soft. ABSENT: distended, guarding, mass, organolmegaly, rebound, tenderness Rectal exam: PRESENT: deferred Neurological exam: PRESENT: alert, awake, oriented to person, oriented to place , oriented to time, oriented to situation, CN II-XII grossly intact. ABSENT: motor sensory deficit Results Laboratory Results: 06/09/18 05:52 06/09/18 05:52 06/09/18 06/09/18 05:52 05:52 WBC 28.4 H RBC 2.65 L Hgb 8.4 L Hct 26.3 L MCV 99 H MCH 31.7 MCHC 31.9 L RDW 22.4 H Plt Count 52 L Seg Neutrophils % Not Reportable Lymphocytes % Not Reportable Monocytes % Not Reportable Eosinophils % Not Reportable Basophils % Not Reportable Absolute Neutrophils Not Reportable Absolute Lymphocytes Not Reportable Absolute Monocytes Not Reportable Absolute Eosinophils Not Reportable Absolute Basophils Not Reportable Sodium 135.7 L Potassium 4.8 Chloride 106 Carbon Dioxide 15 L Anion Gap 15 BUN 50 H Creatinine 0.86 Est GFR ( Amer) > 60 Est GFR (Non-Af Amer) > 60 Glucose 113 H Calcium 7.6 L Impressions: Chest X-Ray 06/07/18 17:37 IMPRESSION: Diffuse metastatic disease predominantly new lymphatic. Left pleural effusions slightly larger than the recent CT. Assessment & Plan - Diagnosis (1) Acute kidney injury Is this a current diagnosis for this admission?: Yes Plan: Resolved. Crea down to 0.86 from 1.43. Likely pre renal from poor oral intake and diuretics. Reduced IVF to 50 cc/hr. (2) Stage IV adenocarcinoma of endometrium Is this a current diagnosis for this admission?: Yes Plan: Oncology following. She is DNR/DNI and i snow comfort care. Awaiting for home hospice to be finalized and set up at home. Will be discharged tomorrow AM. (3) Urinary tract infection Qualifiers: Urinary tract infection type: site unspecified Hematuria presence: with hematuria Qualified Code(s): N39.0 - Urinary tract infection, site not specified; R31.9 - Hematuria, unspecified; R31.9 - Hematuria, unspecified Is this a current diagnosis for this admission?: Yes Plan: Urine culture grew E. coli which is pansensitive. We will switch antibiotics to Keflex. - Time Time Spent with patient: 15-24 minutes
[2018-06-09] MEDS: ACETAMINOPHEN 325 MG TABLET PO PRN (16:31)
[2018-06-09] MEDS ORDERED: CEPHALEXIN 500 MG CAPSULE PO SCH (22:00)
--- NOTE | 2018-06-10 18:48 | PDOC H&P ---
History of Present Illness Admission Date/PCP: 06/07/18 20:30 SHAILESH SUTHERLAND MD Patient complains of: Nausea and weakness History of Present Illness: TRISHA THRASHER is a 62 year old female with a past medical history of stage IV endometrial cancer with metastasis to lung and liver presenting with 48 hours of severe fatigue generalized weakness and dizziness. In the emergency room she is found to have prerenal azotemia, hyperkalemia, leukocytosis and a urinalysis suggestive of urinary tract infection. She started on empiric antibiotics and referred to the hospitalist for the above. Patient denies chest pain, palpitations or diaphoresis. She denies recent antibiotic use. Recently started on diuretic. Past Medical History Cardiac Medical History: Reports: Hyperlipidema Malignancy Medical History: Reports: Other - stage 4 endometrial cancer with metastases to liver and lung involvement Past Surgical History Past Surgical History: Reports: Cholecystectomy, Hysterectomy, Orthopedic Surgery - RT knee surgery after petallar fracture Social History Information Source: Patient, REPLACED BY [facility] Records Lives with: Spouse/Significant other Smoking Status: Never Smoker Frequency of Alcohol Use: None Hx Recreational Drug Use: No Drugs: None Hx Prescription Drug Abuse: No - Advance Directive Resuscitation Status: Do Not Resuscitate Family History Family History: Hypertension Parental Family History Reviewed: Yes Children Family History Reviewed: Yes Sibling(s) Family History Reviewed.: Yes Medication/Allergy Home Medications: Carvedilol [Coreg 12.5 mg Tablet] 12.5 mg PO Q12 06/07/18 Ergocalciferol (Vitamin D2) [Drisdol 50,000 unit (1.25MG) Capsule] 50,000 unit PO CHRISTOPHER@1000 06/07/18 Furosemide [Lasix 20 mg Tablet] 20 mg PO DAILY 06/07/18 Lorazepam [Ativan 0.5 mg Tablet] 0.5 mg PO Q8HP PRN 06/07/18 Ondansetron HCl [Zofran 8 mg Tablet] 8 mg PO Q8HP PRN 06/07/18 Prednisone [Deltasone 5 mg Tablet] 5 mg PO DAILY 06/07/18 Sennosides [Senna Laxative] 8.6 mg PO BID 06/07/18 Simvastatin [Zocor 40 mg Tablet] 40 mg PO QHS 06/07/18 Sitagliptin Phos/Metformin HCl [Janumet 50-500 mg Tablet] 1 tab PO BID 06/07/18 Tramadol HCl [Ultram 50 mg Tablet] 50 mg PO Q6HP PRN 06/07/18 Allergies/Adverse Reactions: No Known Allergies Allergy (Unverified 06/07/18 17:05) Review of Systems Constitutional: PRESENT: as per HPI, anorexia, fatigue, weakness Eyes: ABSENT: visual disturbances Ears: ABSENT: hearing changes Nose, Mouth, and Throat: PRESENT: as per HPI Cardiovascular: PRESENT: as per HPI. ABSENT: chest pain, dyspnea on exertion Respiratory: PRESENT: as per HPI. ABSENT: cough, dyspnea, hemoptysis Gastrointestinal: PRESENT: as per HPI. ABSENT: abdominal pain, bloating, coffee ground emesis Genitourinary: PRESENT: as per HPI. ABSENT: dysuria, hematuria Musculoskeletal: PRESENT: as per HPI. ABSENT: back pain, deformity, joint swelling Integumentary: ABSENT: rash, wounds Neurological: ABSENT: abnormal gait, abnormal speech, confusion, dizziness, focal weakness, syncope Psychiatric: ABSENT: anxiety, depression, homidical ideation, suicidal ideation Endocrine: ABSENT: cold intolerance, heat intolerance, polydipsia, polyuria Hematologic/Lymphatic: ABSENT: easy bleeding, easy bruising Physical Exam Vital Signs: Temp Pulse Resp BP Pulse Ox 97.6 F 106 H 16 121/81 98 06/09/18 07:21 06/09/18 07:21 06/09/18 07:21 06/09/18 07:21 06/09/18 11:00 Intake & Output 06/09/18 06/10/18 06/11/18 11:59 11:59 11:59 Intake Total 3807 1173 Output Total 0 Balance 3807 1173 Weight 57.1 kg General appearance: PRESENT: cooperative, severe distress, thin, other - Pale, ill-appearing Head exam: PRESENT: atraumatic, normocephalic Eye exam: PRESENT: conjunctiva pink, EOMI, PERRLA. ABSENT: scleral icterus Ear exam: PRESENT: normal external ear exam Mouth exam: PRESENT: dry mucosa, tongue midline Neck exam: ABSENT: carotid bruit, JVD, lymphadenopathy, thyromegaly Respiratory exam: PRESENT: accessory muscle use, clear to auscultation ezio, crackles, decreased breath sounds, prolonged expiratory phas, tachypnea. ABSENT : rales, rhonchi, wheezes Cardiovascular exam: PRESENT: RRR. ABSENT: diastolic murmur, rubs, systolic murmur Pulses: PRESENT: normal dorsalis pedis pul Vascular exam: PRESENT: normal capillary refill GI/Abdominal exam: PRESENT: normal bowel sounds, soft. ABSENT: distended, guarding, mass, organolmegaly, rebound, tenderness Rectal exam: PRESENT: deferred Extremities exam: PRESENT: full ROM. ABSENT: calf tenderness, clubbing, pedal edema Neurological exam: PRESENT: alert, awake, oriented to person, oriented to place , oriented to time, oriented to situation, CN II-XII grossly intact. ABSENT: motor sensory deficit Psychiatric exam: PRESENT: appropriate affect, normal mood. ABSENT: homicidal ideation, suicidal ideation Skin exam: PRESENT: dry, intact, warm. ABSENT: cyanosis, rash Results Laboratory Results: 06/09/18 05:52 06/09/18 05:52 Impressions: Chest X-Ray 06/07/18 17:37 IMPRESSION: Diffuse metastatic disease predominantly new lymphatic. Left pleural effusions slightly larger than the recent CT. Assessment & Plan - Diagnosis (1) Acute kidney injury Is this a current diagnosis for this admission?: Yes Plan: Likely secondary to diuretic, IV fluid hydration, avoid nephrotoxic meds and doses reevaluation of chemistry (2) Dehydration Is this a current diagnosis for this admission?: Yes Plan: Please see #1 (3) Hypotension Qualifiers: Hypotension type: hypotension due to hypovolemia Qualified Code(s): I95.89 - Other hypotension; E86.1 - Hypovolemia; E86.1 - Hypovolemia Is this a current diagnosis for this admission?: Yes Plan: Multifactorial secondary to prerenal state and from urinary tract infection. IV fluid challenge initiated (4) Stage IV adenocarcinoma of endometrium Is this a current diagnosis for this admission?: Yes Plan: Poor prognosis, hospice consulted (5) Urinary tract infection Qualifiers: Urinary tract infection type: site unspecified Hematuria presence: with hematuria Qualified Code(s): N39.0 - Urinary tract infection, site not specified; R31.9 - Hematuria, unspecified; R31.9 - Hematuria, unspecified Is this a current diagnosis for this admission?: Yes Plan: Empiric antibiotic initiated, follow-up CBC and blood and urine culture - Time Time Spent: 50 to 70 Minutes - Inpatient Certification Medical Necessity: Need Close Monitoring Due to Risk of Patient Decompensation
--- NOTE | 2018-06-10 19:41 | Death Summary ---
Summary Date : 06/10/18 Time of :: 03:30 Resuscitation Status: Comfort Measures Only - Final Diagnosis (1) Acute kidney injury Is this a current diagnosis for this admission?: Yes (2) Stage IV adenocarcinoma of endometrium Is this a current diagnosis for this admission?: Yes (3) Urinary tract infection Is this a current diagnosis for this admission?: Yes Hospital Course:: Patient was admitted for presyncope and dizziness. Patient has progressive stage 4 endometrial cancer with mets to the liver and lungs. She was recent started on lasix and developed dizziness and KAN from the diuretic. Her chest x -ray shows diffuse metastatic lung disease. She was also noted to have malignant pleural effusions. She was also noted to have a urinary tract infection. Patient was transitioned to comfort care measures after conversation oncology. Plan was to transition patient to home hospice and comfort measures. She remains a DNR/DNI. At flat folder today, patient was noted to be unresponsive with no blood pressure or pulse rate and no spontaneous breathing. Patient was declared clinically at 3:30 AM.
== END 2018-06-10 04:30 | DRG 683 ==
LOC: ER 17:03 → EH 20:30 → 3N 23:21
PROVIDERS: ADMIT Internal Medicine; ATTEND Internal Medicine
DX: N17.9 Acute kidney failure, unspecified (principal); C78.00 Secondary malignant neoplasm of unspecified lung; J91.0 Malignant pleural effusion; C78.7 Secondary malignant neoplasm of liver and intrahepatic bile duct; N39.0 Urinary tract infection, site not specified; C54.1 Malignant neoplasm of endometrium; Z51.5 Encounter for palliative care; Z66 Do not resuscitate; E87.5 Hyperkalemia; T50.1X5A Adverse effect of loop [high-ceiling] diuretics, initial encounter; E86.0 Dehydration; E86.1 Hypovolemia; I95.89 Other hypotension; E78.5 Hyperlipidemia, unspecified; Z90.49 Acquired absence of other specified parts of digestive tract; Z90.710 Acquired absence of both cervix and uterus; Z79.899 Other long term (current) drug therapy; Z82.49 Family history of ischemic heart disease and other diseases of the circulatory system
CPT/HCPCS: 36415; 71046; 80048; 80053; 81001; 82272; 82962; 83605; 83690; 83880; 85025; 87040; 87086; 87088; 87186; 93005; 93010; 96360; 99291; J0696; J2060; J2270; J2405; J7030